=== PATIENT | female | born 1950 | race Caucasian/White ===

== ENCOUNTER → 2016-06-18 | Outpatient (CLI) | payer BC ==
[~2016-06-18] MED LIST: ADVIN25/60 INH; ADVIN25050 INH; ATEN50TA8 PO; ATOR-22 PO; ATV1 PO; B-COTAB18 PO; CETI10TA10 PO; CHOL100010 PO; CHOL1TAB76 PO; CLB/200 PO; CLON0.5T3 PO; CLR10 PO; CMBIN INH; CONJ.6255 PO; CYAN10004 PO; DICL-201 PO; EFF/375 PO; ESOM20CA PO; ESTR0.5T3 PO; HYDC25 PO; HYDR25TA4 PO; IPRA1AER2 INH; LORA10TA51 PO; MULT-506 PO; OXYB5TAB74 PO; POTA10CA28 PO; PRED20TA PO; PRLSR20 PO; RXC5 PO; TRAM-10 PO; ULT50X PO; VENL37.593 PO; VITA400C15 PO; VITACAP37 PO
[2016-06-18 16:19] LABS: ESTIMATED AVERAGE GLUCOSE 120 mg/dl; HA1C FLAG Normal (Normal)
[2016-06-18 16:24] LABS: BLOOD UREA NITROGEN 16 mg/dl (7-18); BUN/CREATININE RATIO 16.6 (10-20); CALCIUM 8.8 mg/dl (8.5-10.1); CARBON DIOXIDE 29 mmol/L (21-32); CHLORIDE 103 mmol/L (98-107); CREATININE 0.95 mg/dl (0.60-1.20); GLUCOSE 90 mg/dl (70-99); POTASSIUM 4.4 mmol/L (3.5-5.1); SODIUM 141 mmol/L (136-145)
[2016-06-18 16:28] LABS: CHOLESTEROL 223 mg/dl (0-200); CHOLESTEROL/HDL RATIO 4.6; HDL CHOLESTEROL 49 mg/dl; TRIGLYCERIDES 80 mg/dl (0-150); VERY LOW DENSITY LIPOPROT CALC 16 mg/dl
== END | disposition home or self-care (01) ==
LOC: C.LABSPEC 14:49
PROVIDERS: ATTEND Internal Medicine
DX: Z00.00 Encounter for general adult medical examination without abnormal findings (principal); R73.9 Hyperglycemia, unspecified; I10 Essential (primary) hypertension

== ENCOUNTER 2016-07-19 16:25 | Emergency (ER) | payer BC ==
[~2016-07-19] VITALS: Ht 160 cm; Wt 114.0 kg
[~2016-07-19 16:25] MED LIST changes: -ADVIN25/60 INH; -ATEN50TA8 PO; -ATOR-22 PO; -CHOL1TAB76 PO; -CLB/200 PO; -CLON0.5T3 PO; -DICL-201 PO; -ESOM20CA PO; -ESTR0.5T3 PO; -HYDR25TA4 PO; -HydrALAZINE HCL 20 MG/ML VIAL ONE; -IPRA1AER2 INH; -LABETALOL HCL IV 5 MG/ML 20ML IV ONE; -LIDOCAINE HCL 2% 2 ML VIAL (20MG/ML) ONE; -LORA10TA51 PO; -MULT-506 PO; -POTA10CA28 PO; -PRED20TA PO; -PROPOFOL IV EMULSION 10 MG/ML 20 ML VIAL IV ONE; -SODIUM CHLORIDE 0.9% 500ML 500 ML IV ONE; -TRAM-10 PO; -VENL37.593 PO; -VITACAP37 PO
[2016-07-19 16:28] VITALS: TEMP 37; Ht 160 cm; Wt 114.0 kg
[2016-07-19] MEDS ORDERED: VITACAP37 PO (16:44)
[2016-07-19] MEDS ORDERED: ASPIRIN 324 MG CHEW PO STA (16:46)
--- NOTE | 2016-07-19 16:48 | EMERGENCY ROOM VISIT NOTE ---
History Report prepared by Harris: Cornell Liao Under the Supervision of: Dr. Barron Jones M.D. First contact with patient: 16:39 Chief Complaint: CHEST PAIN Stated Complaint: Chest pain,dizzy s/p endoscopy Nursing Triage Summary: Colonoscopy today Dr. Castillo. Recovery at 1443 and experienced HTN, 166/88, 195/97, 215/100. Anesthesia ordered hydralizine and labetalol, BP down to 158/83. Pt. then experienced CP, dizziness, and chest heaviness. Pt. denies radiation. EKG done at 1602. Pt. arrives to ED on a litter from the GI unit, [place] x 3 with no complaints of CP, only SOB. Pt. is 98% on 2 L O2. History of Present Illness The patient is a 65 year old female who presents to the Emergency Room with complaints of resolved chest heaviness that occurred earlier today. The patient was also feeling short of breath which has improved. The patient had a Colonoscopy earlier today. The patient was noted to be increasingly hypertensive at that time. She had her Atenolol this morning but did not take hydrochlorothiazide. The patient denies any palpitations. She does have a history of angina and a family history of UT. She is not diabetic and was never a smoker. She denies any increased leg swelling or recent travel. She does not wear oxygen normally. Source of History: patient Onset: earlier today Position: chest Quality: other (heaviness) Timing: resolved Associated Symptoms: + SOB Review of Systems See HPI for pertinent positives & negatives. A total of 10 systems reviewed and were otherwise negative. Past Medical & Surgical Medical Problems: (1) CAD (coronary artery disease) (2) Lumbar stenosis with neurogenic claudication Family History Acute myocardial infarction Social History Smoking Status: Never Smoker Housing Status: lives with family Current/Historical Medications Scheduled Atenolol (Tenormin), 50 MG PO QAM Atorvastatin (Lipitor), 20 MG PO HS Celecoxib (CeleBREX), 200 MG PO QAM Cetirizine Hcl (Zyrtec), 10 MG PO QAM Cholecalciferol (D 1999), 1 TAB PO QAM Clonazepam (Klonopin), 0.5 MG PO BID Cyanocobalamin (Vitamin B-12 1000 Mcg), 2,500 MCG PO QAM Esomeprazole Magnesium (Nexium), 20 MG PO QAM Estradiol (Estradiol), 1 TAB PO QAM Fluticasone Prop/Salmeterol (Advair Diskus 250/50 60 Dose), 1 PUFF INH BID Hydrochlorothiazide (Hctz), 25 MG PO DAILY Multivitamin (Multivitamin), 1 TAB PO QAM Potassium Chloride (Micro-K Ext Rel), 10 MEQ PO QAM Venlafaxine Hcl (Venlafaxine Extended Rel), 37.5 MG PO QAM Vitamin E (E-400), 400 UNITS PO DAILY Allergies Coded Allergies: Codeine (Verified Allergy, Mild, itching, 07/06/16) Lactose Intolerance (GI) (Verified Allergy, Unknown, GI UPSET, 07/06/16) Physical Exam Vital Signs Date Time Temp Pulse Resp B/P Pulse Ox O2 Delivery O2 Flow Rate FiO2 07/19/16 19:19 82 17 171/88 96 07/19/16 17:35 75 16 171/88 95 Room Air 07/19/16 16:38 78 07/19/16 16:28 37.0 80 16 123/88 98 Nasal Cannula 2.0 Physical Exam GENERAL: Patient is smiling, happy-appearing and in no acute distress. HEENT: No acute trauma, normocephalic atraumatic, mucous membranes moist, no nasal congestion, no scleral icterus. NECK: No stridor, no adenopathy, no meningismus, trachea is midline. LUNGS: No dyspnea. Clear to auscultation and equal bilaterally. No wheeze, no rhonchi. HEART: Regular rate and rhythm. No murmurs, rubs, gallops appreciated. ABDOMEN: Soft, nontender, bowel sounds positive, no masses appreciated, no peritonitis. BACK: No midline tenderness, no CVA tenderness EXTREMITIES: Normal motion all extremities, no cyanosis, no edema. NEUROLOGIC: Alert and oriented, no acute motor or sensory deficits, no focal weakness, cranial nerves grossly intact. SKIN: No rash, no jaundice, no diaphoresis. Medical Decision & Procedures ER Provider Diagnostic Interpretation: Radiology results and stated below per my review and radiologist interpretation: SINGLE VIEW CHEST CLINICAL HISTORY: Atypical chest pain. FINDINGS: 2 AP, portable, upright chest radiographs are compared to study dated 10/05/2015. The examination is degraded by portable technique, large body habitus, and patient rotation. The heart appears mildly enlarged and there is atherosclerotic calcification of the thoracic aorta. There is mild congestion of the pulmonary vasculature. No airspace consolidation or large pleural effusion is identified. No pneumothorax is seen. The skeletal structures are osteopenic. The bony thorax is grossly intact. IMPRESSION: 1. Mild cardiac enlargement with congestion of the central pulmonary vasculature. Cortical clinically for evidence of mild congestive failure. 2. No airspace consolidation or large pleural effusion is identified Electronically signed by: Nato Martinez M.D. 07/19/2016 5:14 PM Dictated Date/Time: 07/19/2016 5:13 PM Laboratory Results 07/19/16 17:10 Red Blood Count 4.38, Mean Corpuscular Volume 89.5, Mean Corpuscular Hemoglobin 31.5, Mean Corpuscular Hemoglobin Concent 35.2, Mean Platelet Volume 9.9, Neutrophils (%) (Auto) 66.5, Lymphocytes (%) (Auto) 26.9, Monocytes (%) (Auto) 5.5, Eosinophils (%) (Auto) 0.7, Basophils (%) (Auto) 0.3, Neutrophils # (Auto) 5.91, Lymphocytes # (Auto) 2.39, Monocytes # (Auto) 0.49, Eosinophils # (Auto) 0.06, Basophils # (Auto) 0.03 07/19/16 17:10 Test 07/19/16 17:10 07/19/16 18:42 White Blood Count 8.89 K/uL (4.8-10.8) Red Blood Count 4.38 M/uL (4.2-5.4) Hemoglobin 13.8 g/dL (12.0-16.0) Hematocrit 39.2 % (37-47) Mean Corpuscular Volume 89.5 fL (80-100) Mean Corpuscular Hemoglobin 31.5 pg (25-34) Mean Corpuscular Hemoglobin Concent 35.2 g/dl (32-36) Platelet Count 280 K/uL (130-400) Mean Platelet Volume 9.9 fL (7.4-10.4) Neutrophils (%) (Auto) 66.5 % Lymphocytes (%) (Auto) 26.9 % Monocytes (%) (Auto) 5.5 % Eosinophils (%) (Auto) 0.7 % Basophils (%) (Auto) 0.3 % Neutrophils # (Auto) 5.91 K/uL (1.4-6.5) Lymphocytes # (Auto) 2.39 K/uL (1.2-3.4) Monocytes # (Auto) 0.49 K/uL (0.11-0.59) Eosinophils # (Auto) 0.06 K/uL (0-0.5) Basophils # (Auto) 0.03 K/uL (0-0.2) RDW Standard Deviation 46.4 fL (36.4-46.3) RDW Coefficient of Variation 14.2 % (11.5-14.5) Immature Granulocyte % (Auto) 0.1 % Immature Granulocyte # (Auto) 0.01 K/uL (0.00-0.02) Anion Gap 9.0 mmol/L (3-11) Est Creatinine Clear Calc Drug Dose 76.6 ml/min Estimated GFR () 78.8 Estimated GFR (Non- 68.0 BUN/Creatinine Ratio 10.9 (10-20) Calcium Level 8.5 mg/dl (8.5-10.1) Total Creatine Kinase 123 U/L (26-192) Creatine Kinase MB 2.3 ng/ml (0.5-3.6) Creatine Kinase MB Ratio 1.9 (0-3.0) Troponin I < 0.015 ng/ml (0-0.045) Bedside Troponin I 0.000 ng/ml (0-0.045) Laboratory results as reviewed by me. Medications Administered Medications (Trade) Dose Ordered Sig/Seema Route Start Time Stop Time Status Last Admin Dose Admin Famotidine (Pepcid Tab) 20 mg NOW ONCE PO 07/19/16 17:00 07/19/16 17:01 DC 07/19/16 17:31 20 MG Aspirin (Aspirin Chew) 324 mg NOW STAT PO 07/19/16 16:46 07/19/16 16:47 DC 07/19/16 17:32 324 MG ECG Indication: chest pain Rate (beats per minute): 75 Rhythm: sinus rhythm Findings: 1st degree AV block, nonspecific-ST abn, other (flattening of lateral T-waves) Change: Morphology is overall similar to previous EKGs, including EKG dated 05 October 2015. ED Course 1644: The patient was evaluated in room A4a. A complete history and physical exam was performed. 1646: Aspirin 324 mg PO. 1700: Pepcid 20 mg PO. 180: The patient feels great and is eating dinner. She is okay with waiting for a repeat troponin. She would like to go home. The patient is mildly hypertensive but admits that she did not take all of her meds this morning. 1907: The patient feels great and looks forward to going home. 1909: Discussed the case with Dr. Nicholson, Family Medicine. He agrees with the plan and will follow up. Medical Decision Differential: Cardiac Ischemia (STEMI, NSTEMI, Unstable Angina, etc), Aortic Dissection, Arrhythmia, Pulmonary Embolism, Pneumonia, Pneumothorax, MSK, Infectious, Pericarditis/Myocarditis, Esophageal Rupture, Gastrointestinal, amongst other pathologies entertained. 65 yr old female arrives from post -op where just finished benign colonoscopy. Admits didn't take all BP meds this morning. HTN post-op thus given anti- hypertensives IV resulting in significant drop BP and concurrent Chest discomfort. Resolved shortly thereafter and patient feeling well. EKG here without acute STEMI. Vitals mild HTN though will not yonathan given what just happened. Monitored for several hours no issues. Repeat Trop negative. Patient is not interested in cardiac obs rule out and understands that cardiac event not completely ruled out. Aware she can return at any time and that if symptoms call 911. Stable and feeling well. She and are in agreement on going home. She makes clear she will follow up with PCP. I discussed this with PCP to make him aware of what has happened. Without other symptoms and being stable throughout several hours I do not feel this represents PE, dissection, esophageal rupture. Consults Time Called: 1904 Consulting Physician: Dr. Nicholson, Family Medicine. Returned Call: 1909 1909: Discussed the case with Dr. Nicholson, Family Medicine. He agrees with the plan and will follow up. Impression Primary Impression: Substernal precordial chest pain Additional Impression: Hypertension Scribe Attestation The scribe's documentation has been prepared under my direction and personally reviewed by me in its entirety. I confirm that the note above accurately reflects all work, treatment, procedures, and medical decision making performed by me. Departure Information Dispostion Home / Self-Care Referrals Christian Vela M.D. (PCP) Forms HOME CARE DOCUMENTATION FORM, IMPORTANT VISIT INFORMATION Patient Instructions Chest Pain - [facility], [facility] Additional Instructions Follow up with your PCP in next few days for follow up and to discuss stress testing. Problem Qualifiers Additional Impression: Hypertension Hypertension type: essential hypertension Qualified Codes: I10 - Essential ( primary) hypertension
[2016-07-19] MEDS ORDERED: FAMOTIDINE 20 MG TAB PO ONE (17:00)
--- NOTE | 2016-07-19 17:16 | DIAGNOSTIC IMAGING REPORT ---
SINGLE VIEW CHEST CLINICAL HISTORY: Atypical chest pain. FINDINGS: 2 AP, portable, upright chest radiographs are compared to study dated 10/05/2015. The examination is degraded by portable technique, large body habitus, and patient rotation. The heart appears mildly enlarged and there is atherosclerotic calcification of the thoracic aorta. There is mild congestion of the pulmonary vasculature. No airspace consolidation or large pleural effusion is identified. No pneumothorax is seen. The skeletal structures are osteopenic. The bony thorax is grossly intact. IMPRESSION: 1. Mild cardiac enlargement with congestion of the central pulmonary vasculature. Cortical clinically for evidence of mild congestive failure. 2. No airspace consolidation or large pleural effusion is identified Electronically signed by: Nato Martinez M.D. 07/19/2016 5:14 PM Dictated Date/Time: 07/19/2016 5:13 PM
[2016-07-19 17:23] LABS: BASO % 0.3 %; BASO ABS # 0.03 K/uL (0-0.2); COMPLETE YES; EOS % 0.7 %; HEMATOCRIT 39.2 % (37-47); IG% 0.1 %; LYMPH % 26.9 %; LYMPH ABS # 2.39 K/uL (1.2-3.4); MEAN CELL VOLUME 89.5 fL (80-100); MEAN CORPUSCULAR HEMOGLOBIN 31.5 pg (25-34); MEAN CORPUSCULAR HGB CONC 35.2 g/dl (32-36); MEAN PLATELET VOLUME 9.9 fL (7.4-10.4); MONO % 5.5 %; NEUT % 66.5 %; PLATELET COUNT 280 K/uL (130-400); RED BLOOD COUNT 4.38 M/uL (4.2-5.4); WHITE BLOOD COUNT 8.89 K/uL (4.8-10.8)
[2016-07-19 17:40] LABS: BLOOD UREA NITROGEN 10 mg/dl (7-18); BUN/CREATININE RATIO 10.9 (10-20); CALCIUM 8.5 mg/dl (8.5-10.1); CARBON DIOXIDE 27 mmol/L (21-32); CHLORIDE 107 mmol/L (98-107); CREATININE 0.89 mg/dl (0.60-1.20); GLUCOSE 100 mg/dl (70-99); POTASSIUM 3.4 mmol/L (3.5-5.1); SODIUM 143 mmol/L (136-145)
[2016-07-19 17:45] LABS: CKMB/CK RATIO 1.9 (0-3.0)
[2016-07-19 19:19] VITALS: BP 171/88; PULSE 82; O2SAT 96
[2017-01-24] MEDS ORDERED: CHOL1TAB76 PO (09:05)
[2017-01-24] MEDS ORDERED: ESOM20CA PO (09:05)
[2017-01-24] MEDS ORDERED: ADVIN25/60 INH (09:05)
[2017-01-24] MEDS ORDERED: CLB/200 PO (09:05)
[2017-01-24] MEDS ORDERED: ESTR0.5T3 PO (09:05)
[2017-01-24] MEDS ORDERED: VENL37.593 PO (09:05)
[2017-01-24] MEDS ORDERED: ATOR-22 PO (09:09)
[2017-01-24] MEDS ORDERED: MULT-506 PO (09:40)
[2017-01-24] MEDS ORDERED: POTA10CA28 PO (11:40)
== END 2016-07-19 19:21 | disposition home or self-care (01) ==
LOC: EDBD 16:25 → C.EDA 16:27
DX: R07.2 Precordial pain (principal); I10 Essential (primary) hypertension; I44.30 Unspecified atrioventricular block; I25.10 Atherosclerotic heart disease of native coronary artery without angina pectoris; M48.06 Spinal stenosis, lumbar region; Z79.899 Other long term (current) drug therapy; Z88.5 Allergy status to narcotic agent; Z91.011 Allergy to milk products; Z82.49 Family history of ischemic heart disease and other diseases of the circulatory system

== ENCOUNTER → 2016-07-19 | Day surgery (SDC) | payer BC ==
[2016-07-06 09:06] VITALS: Ht 161.3 cm; Wt 109.1 kg
[~2016-07-19] VITALS: Ht 161.3 cm; Wt 109.1 kg
[~2016-07-19] MED LIST changes: -ADVIN25050 INH; -ATV1 PO; -B-COTAB18 PO; -CHOL100010 PO; -CLR10 PO; -CONJ.6255 PO; -EFF/375 PO; +HydrALAZINE HCL 20 MG/ML VIAL ONE; +LABETALOL HCL IV 5 MG/ML 20ML IV ONE; +LIDOCAINE HCL 2% 2 ML VIAL (20MG/ML) ONE; -OXYB5TAB74 PO; -PRLSR20 PO; +PROPOFOL IV EMULSION 10 MG/ML 20 ML VIAL IV ONE; -RXC5 PO; +SODIUM CHLORIDE 0.9% 500ML 500 ML IV ONE; -ULT50X PO
--- NOTE | 2016-07-19 14:15 | Endo History and Physical ---
History & Physical Date of Service: Jul 19, 2016. Chief Complaint: history of polyps Referring Physician: Dr Janna Katz History of Present Illness hx polyps Past Surgical History Hx Cardiac Surgery: No Hx Internal Defibrillator: No Hx Pacemaker: No Hx Abdominal Surgery: Yes (JESSY) Hx of Implantable Prosthesis: No Hx Post-Op Nausea and Vomiting: No Hx Cancer Surgery: Yes (MAREK BSO) Hx Thoracic Surgery: No Hx Orthopedic: Yes (LOWER BACK SURGERY X2, LT/RT TKA) Hx Urinary Tract Surgery: No Family History IBD Social History Smoking Status: Never Smoker Hx Substance Use: No Hx Alcohol Use: No Allergies Coded Allergies: Codeine (Verified Allergy, Mild, itching, 07/06/16) Lactose Intolerance (GI) (Verified Allergy, Unknown, GI UPSET, 07/06/16) Current Medications Reported Home Medications Medications Dose Route/Sig Max Daily Dose Days Date Category Dose Instructions Lipitor (Atorvastatin Calcium) 20 Mg Tab 20 Mg PO HS 07/06/16 Reported NEW RX - HAS NOT STARTED YET Advair Diskus 250/50 60 Dose (Fluticasone Prop/Salmeterol) 1 Ea Aerp 1 Puff INH BID 07/06/16 Reported Nexium (Esomeprazole Magnesium) 20 Mg Capcr 20 Mg PO QAM 07/06/16 Reported Zyrtec (Cetirizine Hcl) 10 Mg Tab 10 Mg PO QAM 07/06/16 Reported CeleBREX (Celecoxib) 200 Mg Cap 200 Mg PO QAM 07/06/16 Reported Estradiol 0.5 Mg Tab 1 Tab PO QAM 07/06/16 Reported Venlafaxine Extended Rel (Venlafaxine Hcl) 37.5 Mg Cap 37.5 Mg PO QAM 07/06/16 Reported Vitamin B-12 1000 Mcg (Cyanocobalamin) 1,000 Mcg Tab 2,500 Mcg PO QAM 07/06/16 Reported D 2000 (Cholecalciferol) 2,000 Unit Tab 1 Tab PO QAM 07/06/16 Reported Vitamin E (kg-Zmare-Vqdihlelre Acetate) 400 Inter.unit Cap 400 Inter.unit PO BID 10/05/15 Reported Multivitamin (Multivitamins) Tab 1 Tab PO QAM 10/05/15 Reported Combivent * (Ipratropium [place]) Inh 2 Puffs INH QID PRN 08/31/10 Reported Klonopin (Clonazepam) 0.5 Mg Tab 0.5 Mg PO BID 08/31/10 Reported Micro-K Ext Rel (Potassium Chloride) 10 Meq Capcr 10 Meq PO QAM 02/18/09 Reported Hctz * (Hydrochlorothiazide) 25 Mg Tab 25 Mg PO QAM 02/21/09 Reported Tenormin (Atenolol) 50 Mg Tab 50 Mg PO QAM 02/21/09 Reported Vital Signs Weight (Kilograms): 109.09 Height (Feet): 5 Height (Inches): 3.5 Date Time Temp Pulse Resp B/P Pulse Ox O2 Delivery O2 Flow Rate FiO2 07/19/16 13:40 36.4 65 20 193/88 95 Room Air Physical Exam AAO x3 Nl s1s2 Lungs CTA Abd soft NT ND + BS - CCE
--- NOTE | 2016-07-19 14:43 | Discharge Instructions ---
Endoscopy Patient Instructions Date / Procedure(s) Performed Jul 19, 2016. Colonoscopy Allergy Information Coded Allergies: Codeine (Verified Allergy, Mild, itching, 07/06/16) Lactose Intolerance (GI) (Verified Allergy, Unknown, GI UPSET, 07/06/16) Discharge Date / Findings Jul 19, 2016. diverticulosis Medication Instructions Stopped Medication(s): vitamins stopped for 1 week Restart Stopped Medication(s): Reported Home Medications Medications Dose Route/Sig Max Daily Dose Days Date Category Dose Instructions Lipitor (Atorvastatin Calcium) 20 Mg Tab 20 Mg PO HS 07/06/16 Reported NEW RX - HAS NOT STARTED YET Advair Diskus 250/50 60 Dose (Fluticasone Prop/Salmeterol) 1 Ea Aerp 1 Puff INH BID 07/06/16 Reported Nexium (Esomeprazole Magnesium) 20 Mg Capcr 20 Mg PO QAM 07/06/16 Reported Zyrtec (Cetirizine Hcl) 10 Mg Tab 10 Mg PO QAM 07/06/16 Reported CeleBREX (Celecoxib) 200 Mg Cap 200 Mg PO QAM 07/06/16 Reported Estradiol 0.5 Mg Tab 1 Tab PO QAM 07/06/16 Reported Venlafaxine Extended Rel (Venlafaxine Hcl) 37.5 Mg Cap 37.5 Mg PO QAM 07/06/16 Reported Vitamin B-12 1000 Mcg (Cyanocobalamin) 1,000 Mcg Tab 2,500 Mcg PO QAM 07/06/16 Reported D 2000 (Cholecalciferol) 2,000 Unit Tab 1 Tab PO QAM 07/06/16 Reported Vitamin E (py-Vjbwu-Qxgxnpukux Acetate) 400 Inter.unit Cap 400 Inter.unit PO BID 10/05/15 Reported Multivitamin (Multivitamins) Tab 1 Tab PO QAM 10/05/15 Reported Combivent * (Ipratropium [place]) Inh 2 Puffs INH QID PRN 08/31/10 Reported Klonopin (Clonazepam) 0.5 Mg Tab 0.5 Mg PO BID 08/31/10 Reported Micro-K Ext Rel (Potassium Chloride) 10 Meq Capcr 10 Meq PO QAM 02/18/09 Reported Hctz * (Hydrochlorothiazide) 25 Mg Tab 25 Mg PO QAM 02/21/09 Reported Tenormin (Atenolol) 50 Mg Tab 50 Mg PO QAM 02/21/09 Reported Reported Home Medications Medications Dose Route/Sig Max Daily Dose Days Date Category Dose Instructions Lipitor (Atorvastatin Calcium) 20 Mg Tab 20 Mg PO HS 07/06/16 Reported NEW RX - HAS NOT STARTED YET Advair Diskus 250/50 60 Dose (Fluticasone Prop/Salmeterol) 1 Ea Aerp 1 Puff INH BID 07/06/16 Reported Nexium (Esomeprazole Magnesium) 20 Mg Capcr 20 Mg PO QAM 07/06/16 Reported Zyrtec (Cetirizine Hcl) 10 Mg Tab 10 Mg PO QAM 07/06/16 Reported CeleBREX (Celecoxib) 200 Mg Cap 200 Mg PO QAM 07/06/16 Reported Estradiol 0.5 Mg Tab 1 Tab PO QAM 07/06/16 Reported Venlafaxine Extended Rel (Venlafaxine Hcl) 37.5 Mg Cap 37.5 Mg PO QAM 07/06/16 Reported Vitamin B-12 1000 Mcg (Cyanocobalamin) 1,000 Mcg Tab 2,500 Mcg PO QAM 07/06/16 Reported D 2000 (Cholecalciferol) 2,000 Unit Tab 1 Tab PO QAM 07/06/16 Reported Vitamin E (nx-Eytob-Cbtfgfgwvi Acetate) 400 Inter.unit Cap 400 Inter.unit PO BID 10/05/15 Reported Multivitamin (Multivitamins) Tab 1 Tab PO QAM 10/05/15 Reported Combivent * (Ipratropium [place]) Inh 2 Puffs INH QID PRN 08/31/10 Reported Klonopin (Clonazepam) 0.5 Mg Tab 0.5 Mg PO BID 08/31/10 Reported Micro-K Ext Rel (Potassium Chloride) 10 Meq Capcr 10 Meq PO QAM 02/18/09 Reported Hctz * (Hydrochlorothiazide) 25 Mg Tab 25 Mg PO QAM 02/21/09 Reported Tenormin (Atenolol) 50 Mg Tab 50 Mg PO QAM 02/21/09 Reported Provider Instructions Activity Restrictions - No exercising or heavy lifting for 24 hours. - Do not drink alcohol the day of the procedure. - Do not drive a car or operate machinery until the day after the procedure. - Do not make any important decisions or sign important papers in 24 hours after the procedure. Following Day: - Return to full activity which may include returning to work/school. Diet Start your diet with liquids and light foods (camilla soup, juice, toast). Then eat your usual diet if not nauseated. Treatment For Common After Affects For mild abdominal pain, bloating, or excessive gas: - Rest - Eat lightly - Lie on right side Follow-Up Information Follow-up with Dr Janna Katz as scheduled Anesthesia Information What You Should Know You have had a procedure that required some medicine to reduce anxiety and discomfort. This treatment is called moderate sedation. After receiving the treatment, you may be sleepy, but you will be able to breathe on your own. The effects of the treatment may last for several hours. Follow these instructions along with Activity/Diet recommendations noted above: * Do NOT do anything where dizziness or clumsiness would be dangerous. * Rest quietly at home today, then you can be up and about tomorrow. * Have a responsible person stay with you the rest of today. * You may have had an I.V. today. If so, you may take the dressing off later today. Recommendations Call your doctor if: * Trouble breathing * Continuous vomiting for more than 24 hours * Temperature above 101 degrees * Severe abdominal pain or bloating * Pain not relieved by pain medicine ordered * There is increased drainage or redness from any incision * A large amount of rectal bleeding greater than 2-3 tablespoons. (If you had a polyp/s removed or have hemorrhoids, a small amount of blood - from the rectum is to be expected.) * You have any unanswered questions or concerns. IN THE EVENT OF A SERIOUS EMERGENCY, GO TO THE NEAREST EMERGENCY ROOM Your discharge instructions were prepared by provider Jamaal Castillo. Patient Instructions Signature Page Marbella Altamirano Patient (or Guardian) Signature/Date: I have read and understand the instructions given to me by my caregivers. Caregiver/RN/Doctor Signature/Date: The above-named patient and/or guardian has received patient instructions on this date. + Original Patient Signature Page (only) stays with chart. Please make copy for patient.
--- NOTE | 2016-07-19 15:22 | GI REPORT ---
Procedure Date: 07/19/2016 1:58 PM Procedure: Colonoscopy Indications: High risk colon cancer surveillance: Personal history of colonic polyps Medicines: Propofol per Anesthesia Complications: No immediate complications. Estimated Blood Loss: Estimated blood loss: none. Estimated blood loss: none. Procedure: Pre-Anesthesia Assessment: - Prior to the procedure, a History and Physical was performed, and patient medications and allergies were reviewed. The patient's tolerance of previous anesthesia was also reviewed. The risks and benefits of the procedure and the sedation options and risks were discussed with the patient. All questions were answered, and informed consent was obtained. Prior Anticoagulants: The patient has taken no previous anticoagulant or antiplatelet agents. ASA Grade Assessment: II - A patient with mild systemic disease. After reviewing the risks and benefits, the patient was deemed in satisfactory condition to undergo the procedure. After I obtained informed consent, the scope was passed under direct vision. Throughout the procedure, the patient's blood pressure, pulse, and oxygen saturations were monitored continuously. The Scope was introduced through the anus and advanced to the terminal ileum, with identification of the appendiceal orifice and IC valve. The colonoscopy was performed without difficulty. The patient tolerated the procedure well. The quality of the bowel preparation was good. Findings: The perianal and digital rectal examinations were normal. Pertinent negatives include normal sphincter tone, no palpable rectal lesions and no anal lesion or abnormality was detected. A few small-mouthed diverticula were found in the sigmoid colon. The exam was otherwise without abnormality. The terminal ileum appeared normal. The retroflexed view of the distal rectum and anal verge was normal and showed no anal or rectal abnormalities. Impression: - Diverticulosis in the sigmoid colon. - The examination was otherwise normal. - The examined portion of the ileum was normal. - The distal rectum and anal verge are normal on retroflexion view. - No specimens collected. Recommendation: - Discharge patient to home (ambulatory). - Resume regular diet. - Continue present medications. - Await pathology results. - Repeat colonoscopy in 5 years for surveillance. - Return to referring physician as previously scheduled. MD Jamaal Vincent MD 07/19/2016 3:22:14 PM This report has been signed electronically. Note Initiated On: 07/19/2016 1:58 PM I attest to the content of the Intraoperative Record and orders documented therein, exceptions below
[2016-07-19 15:55] VITALS: BP 158/83; PULSE 73; O2SAT 98
--- NOTE | 2016-07-19 16:35 | Anesthesiology Progress Note ---
Anesthesia Post Op Note Date & Time Jul 19, 2016 at 15:24 Vital Signs Pain Intensity: 0 Vital Signs Past 12 Hours Date Time Temp Pulse Resp B/P Pulse Ox O2 Delivery O2 Flow Rate FiO2 07/19/16 15:13 65 20 186/106 96 Room Air 07/19/16 14:58 68 20 165/82 97 Room Air 07/19/16 14:43 69 20 166/88 96 Room Air 07/19/16 13:40 36.4 65 20 193/88 95 Room Air Notes Mental Status: alert / awake / arousable, participated in evaluation Pt Amnestic to Procedure: Yes Nausea / Vomiting: adequately controlled Pain: adequately controlled Airway Patency, RR, SpO2: stable & adequate BP & HR: stable & adequate Hydration State: stable & adequate Anesthetic Complications: no major complications apparent The patient is a 65 y/o female with a h/o HTN, Asthma, COPD, GERD, uterine CA , anxiety/depression and obesity who is s/p colonoscopy with Dr. Henriquez. The patient's preop BP was elevated to 193/88 HR 65. She took her Atenolol today but not her HCTZ and stated she was anxious for the procedure. She stated she saw her PCP several weeks ago and that she believes her BP at the time was 130s/ 70s. During the procedure, her BP improved with propofol to the 130s/60s, however it began to rise again up to 195/97 HR 60s in recovery. The patient was given a total of Hydralazine 10mg IV and Labetalol 5mg IV. As her BP was starting to improve, she started to complain of chest heaviness associated with lightheaded and shortness of breath. She denied nausea. A 12 lead EKG was done and showed NSR with first degree AV block, HR 75 and nonspecific T wave changes. Comparing it to her last EKG from 10/12 it appears that there is some T wave flattening in the later leads. I informed the patient that I would like her to go to the ED for further evaluation. She was agreeable. I also informed Dr. Castillo that the patient was going to the ED. I gave a full report to Dr. Jones in the ED. The patient was transported to the ED by the endoscopy nurses of full monitors. BP prior to transfer was 158/83 HR 73. Prior to being transferred the patient stated that her chest pressure and shortness of breath had mostly resolved.
== END | disposition home or self-care (01) ==
LOC: C.GI 12:45
PROVIDERS: ATTEND Internal Medicine Gastroenterology
DX: Z12.11 Encounter for screening for malignant neoplasm of colon (principal); Z86.010 Personal history of colon polyps; K57.30 Diverticulosis of large intestine without perforation or abscess without bleeding; Z98.890 Other specified postprocedural states; Z83.79 Family history of other diseases of the digestive system; Z88.5 Allergy status to narcotic agent; R07.2 Precordial pain; I10 Essential (primary) hypertension; I44.30 Unspecified atrioventricular block; I25.10 Atherosclerotic heart disease of native coronary artery without angina pectoris; M48.06 Spinal stenosis, lumbar region; Z79.899 Other long term (current) drug therapy; Z91.011 Allergy to milk products; Z82.49 Family history of ischemic heart disease and other diseases of the circulatory system

== ENCOUNTER → 2016-08-21 | Outpatient (CLI) | payer BC ==
[~2016-08-21] MED LIST changes: +ADVIN25/60 INH; +ATEN50TA8 PO; +ATOR-22 PO; +CHOL1TAB76 PO; +CLB/200 PO; +CLON0.5T3 PO; -CMBIN INH; +DICL-201 PO; +ESOM20CA PO; +ESTR0.5T3 PO; -HYDC25 PO; +HYDR25TA4 PO; +IPRA1AER2 INH; +LORA10TA51 PO; +MULT-506 PO; +POTA10CA28 PO; +PRED20TA PO; +REGADENOSON 0.4 MG/5 ML SYR ONE; +TRAM-10 PO; +VENL37.593 PO; -VITA400C15 PO; +VITACAP37 PO
--- NOTE | 2016-08-21 16:17 | MYOCARDIAL PERFUSION SCAN ---
DATE OF STUDY: 08/21/2016. PRIMARY CARE PHYSICIAN AND REQUESTING PHYSICIAN: Dr. Nicholson. STUDY TITLE: ONE-DAY NUCLEAR MEDICINE TECHNETIUM-99M MYOCARDIAL PERFUSION SCAN. INDICATIONS: Chest pain, abnormal EKG. Baseline EKG shows sinus rhythm with first degree AV block, RSR prime pattern with prolonged QTC. Lexiscan stress EKG baseline heart rate 65, crow to 82, 52% of maximum predicted heart rate. No Lexiscan-induced ST changes or arrhythmias. No symptoms with pharmacologic stress. TECHNIQUE: For the stress portion of the study 30.3 mCi of technetium-99m Cardiolite IV was injected at 1335 p.m. on 08/21/2016. Thirty minutes following the injection, imaging of the heart was performed in multiple projections. For the rest portion of the study 11.3 mCi of technetium-99m Cardiolite was injected IV at 11:35. One hour following the injection, imaging of the heart was performed in the same projections. FINDINGS: Rotating raw images were reviewed in detail. There was an anterior lateral breast attenuation shadow noted. There was minimal gut uptake impacting the inferior imaging border of the heart. There was no significant extra cardiac pathologic uptake. The short axis, vertical long axis, horizontal long axis images were reviewed in detail. There was a small mild to moderate partially reversible perfusion defect involving the mid anterior apical anterior and lateral wall and true apex. Overall summed difference score of 2. This defect was thought most likely to correspond with breast attenuation. Normal LV size with an end-diastolic volume of 60 mL, EF was 86% with no regional wall motion abnormalities. IMPRESSION: 1. Negative Lexiscan myocardial perfusion scan for high risk of ischemia. 2. Small, mild partially reversible perfusion defect involving the mid to apical anterior wall which I suspect was artifactual in the setting of normal wall motion. Less likely could represent distal LAD infarct with periinfarct ischemia. 3. Normal left ventricular size and function with an ejection fraction of 86%, no regional wall motion abnormalities noted. 4. Nondiagnostic Lexiscan EKG due to inability to reach target heart rate. MTDD
== END | disposition home or self-care (01) ==
LOC: C.NUCL 10:57
PROVIDERS: ATTEND Internal Medicine
DX: R94.31 Abnormal electrocardiogram [ECG] [EKG] (principal); R07.9 Chest pain, unspecified

== ENCOUNTER → 2016-09-19 | Outpatient (CLI) | payer BC ==
[~2016-09-19] MED LIST changes: -REGADENOSON 0.4 MG/5 ML SYR ONE
== END | disposition home or self-care (01) ==
LOC: C.LABSPEC 14:00
PROVIDERS: ATTEND Internal Medicine
DX: N39.0 Urinary tract infection, site not specified (principal)

== ENCOUNTER → 2017-01-03 | Outpatient (CLI) | payer BC ==
[2017-01-03 15:29] LABS: ALT/SGPT 24 U/L (12-78); AST/SGOT 17 U/L (15-37); BLOOD UREA NITROGEN 14 mg/dl (7-18); BUN/CREATININE RATIO 14.8 (10-20); CALCIUM 9.2 mg/dl (8.5-10.1); CARBON DIOXIDE 30 mmol/L (21-32); CHLORIDE 102 mmol/L (98-107); CHOLESTEROL 164 mg/dl (0-200); CREATININE 0.91 mg/dl (0.60-1.20); GLUCOSE 92 mg/dl (70-99); POTASSIUM 3.9 mmol/L (3.5-5.1); SODIUM 140 mmol/L (136-145); TRIGLYCERIDES 78 mg/dl (0-150); VERY LOW DENSITY LIPOPROT CALC 16 mg/dl
[2017-01-03 15:32] LABS: ALB/GLOB RATIO 0.9 (0.9-2); ALKALINE PHOSPHATASE 105 U/L (45-117); CHOLESTEROL/HDL RATIO 3.2; HDL CHOLESTEROL 51 mg/dl
[2017-01-03 16:44] LABS: ESTIMATED AVERAGE GLUCOSE 120 mg/dl; HA1C FLAG Normal (Normal)
== END | disposition home or self-care (01) ==
LOC: C.LABSPEC 14:54
PROVIDERS: ATTEND Internal Medicine
DX: R73.9 Hyperglycemia, unspecified (principal); I10 Essential (primary) hypertension; E78.5 Hyperlipidemia, unspecified

== ENCOUNTER 2017-01-24 15:02 | Emergency (ER) | payer BC ==
[~2017-01-24] VITALS: Ht 160 cm; Wt 117.0 kg
[~2017-01-24 15:02] MED LIST changes: -ATEN50TA8 PO; -CLON0.5T3 PO; -DICL-201 PO; -HYDR25TA4 PO; -IPRA1AER2 INH; -LORA10TA51 PO; -PRED20TA PO; -TRAM-10 PO
[2017-01-24 15:12] VITALS: TEMP 36.6; Ht 160 cm; Wt 117.0 kg
--- NOTE | 2017-01-24 15:54 | EMERGENCY ROOM VISIT NOTE ---
History Report prepared by Harris: Diana William Under the Supervision of: Dr. Gal Yost M.D. First contact with patient: 15:31 Chief Complaint: BACK PAIN Stated Complaint: VERY BAD PAIN IN LOWER BACK History of Present Illness The patient is a 66 year old female who presents to the Emergency Room with complaints of worsening lower back pain that began 1 month ago. She states that the pain has been causing her nausea and abdominal pain. She also reports having a cough for several months. She states that the pain is severe and that she had a shot done by her orthopedic doctor for it last month, but it did not alleviate her pain. The patient reports a history of 2 back operations that were done three years ago and in October of last year. She reports that she can feel the pain when she lifts her legs. The patient denies having urinary symptoms. incontinence, chills, and fevers. Source of History: patient Onset: 1 month ago Position: back (lower) Symptom Intensity: severe Timing: worsening Associated Symptoms: + cough, + nausea, + abdominal pain, No fevers, No chills, No urinary symptoms Review of Systems See HPI for pertinent positives and negatives. A total of ten systems were reviewed and were otherwise negative. Past Medical & Surgical Medical Problems: (1) CAD (coronary artery disease) (2) Lumbar stenosis with neurogenic claudication Family History Acute myocardial infarction Social History Smoking Status: Never Smoker Housing Status: lives with family Current/Historical Medications Scheduled Atenolol (Tenormin), 50 MG PO QAM Atorvastatin (Lipitor), 20 MG PO HS Celecoxib (CeleBREX), 200 MG PO QAM Cholecalciferol (D 2000), 1 TAB PO QAM Clonazepam (Klonopin), 0.5 MG PO BID Diclofenac (Voltaren), 75 MG PO BID Esomeprazole Magnesium (Nexium), 20 MG PO QAM Estradiol (Estradiol), 1 TAB PO QAM Fluticasone Prop/Salmeterol (Advair Diskus 250/50 60 Dose), 1 PUFF INH BID Hydrochlorothiazide (Hctz), 25 MG PO DAILY Loratadine (Claritin), 10 MG PO DAILY Multivitamin (Multivitamin), 1 TAB PO QAM Potassium Chloride (Micro-K Ext Rel), 10 MEQ PO BID Prednisone (Prednisone), 3 TAB PO DAILY Venlafaxine Hcl (Venlafaxine Extended Rel), 37.5 MG PO QAM Scheduled PRN Ipratropium-Albuterol (Combivent Respimat), 1 PUFFS INH QID PRN for SOB/Wheezing Tramadol (Ultram), 50 MG PO Q6 PRN for Pain Allergies Coded Allergies: Codeine (Verified Allergy, Mild, itching, 07/06/16) Lactose Intolerance (GI) (Verified Allergy, Unknown, GI UPSET, 07/06/16) Physical Exam Vital Signs Date Time Temp Pulse Resp B/P (MAP) Pulse Ox O2 Delivery O2 Flow Rate FiO2 01/24/17 17:06 72 18 185/95 98 Room Air 01/24/17 15:12 36.6 67 18 162/78 95 Room Air Physical Exam GENERAL: Awake, alert, well-appearing, in no distress HENT: Normocephalic, atraumatic. Oropharynx unremarkable .Dry mucous membranes. EYES: Normal conjunctiva. Sclera non-icteric. NECK: Supple. No nuchal rigidity. FROM. No JVD. RESPIRATORY: Clear to auscultation. CARDIAC: Regular rate, normal rhythm. Extremities warm and well perfused. Pulses equal. ABDOMEN: Soft, non-distended. No tenderness to palpation. No rebound or guarding. No masses. RECTAL: Deferred. MUSCULOSKELETAL: Chest examination reveals no tenderness. There is no CVA tenderness to palpation. No joint edema. Mild tenderness in right lower lumbar region in the sciatic distribution distally. No spinal step offs or tenderness to palpation midline. LOWER EXTREMITIES: Calves are equal size bilaterally and non-tender. No edema. No discoloration. Positive strength leg raise on right. motor, sensory, and pulses are intact in all 4 extremities. NEURO: Normal sensorium. No sensory or motor deficits noted. SKIN: No rash or jaundice noted. Medical Decision & Procedures Medications Administered Medications (Trade) Dose Ordered Sig/Seema Route Start Time Stop Time Status Last Admin Dose Admin Sodium Chloride 1,000 ml @ 999 mls/hr Q1H1M STAT IV 01/24/17 15:56 01/24/17 16:56 DC 01/24/17 15:56 999 MLS/HR Ketorolac Tromethamine (Toradol Inj) 30 mg NOW STAT IV 01/24/17 15:56 01/24/17 15:59 DC 9/28/17 16:14 30 MG Dexamethasone Sodium Phosphate (Decadron Inj) 10 mg NOW ONCE IV 01/24/17 16:00 01/24/17 16:01 DC 01/24/17 16:14 10 MG ED Course 1548: The patient was evaluated in room A9B. A complete history and physical exam was performed. 1556: Ordered Toradol Inj 30 mg IV, Sodium Chloride 1,000 ml @ 999 mls/hr IV. 1600: Ordered Decadron Inj 10 mg IV. 1740: I reevaluated the patient, and she is feeling better. She states that her pain is now down to a 5/10. 1830: I reevaluated the patient. Discussed results and discharge instructions: She verbalized understanding and agreement. The patient is ready for discharge. Medical Decision I reviewed the patient's past medical history, medications, and the nursing notes as described above. Differentials include: lumbar radiculopathy, worsening spinal stenosis, musculoskeletal strain, epidural abscess, and core compression. The patient is a 66-year-old woman with a past medical history of lumbar spinal stenosis status post spinal surgery is emergency department with worsening right low back pain extending to her right leg consistent with sciatica. History of present illness. Arrival patient appears uncomfortable in no acute distress. Mild tenderness in the right lumbar region in the sciatic distribution with positive straight leg raise. Otherwise denies urinary retention or bowel incontinence. Neurologically intact in all extremities makes or compression unlikely. Chest patient the option for MRI however her symptoms are consistent with a radiculopathy in the setting of her known disease. Patient prefers to defer the MRI at this point and we will continue with supportive management to have her symptoms under control so she is to follow-up with her spine surgeon Dr. Knox. Patient improved after treatment with pain down from a 10 to a 5. Findings and plan for follow-up reviewed with patient. Patient agreeable and d/c'd per discharge instructions. Medication Reconcilliation Current Medication List: was personally reviewed by me Blood Pressure Screening Patient's blood pressure: Elevated blood pressure Blood pressure disposition: Elevated BP felt to be situational Impression Primary Impression: Lumbar radiculopathy, acute Scribe Attestation The scribe's documentation has been prepared under my direction and personally reviewed by me in its entirety. I confirm that the note above accurately reflects all work, treatment, procedures, and medical decision making performed by me. Departure Information Dispostion Home / Self-Care Prescriptions Prednisone (Prednisone) 20 Mg Tab 3 TAB PO DAILY for 4 Days, #12 TAB FOR 4 DAYS Prov: Gal Yost M.D. 01/24/17 Referrals Christian Vela M.D. (PCP) Forms HOME CARE DOCUMENTATION FORM, IMPORTANT VISIT INFORMATION Patient Instructions Lumbar Radiculopathy, My [facility] Additional Instructions Please follow up with your Ortho-spine surgeon, Dr. Knox, in the next 1-3 days for re-evaluation. Otherwise, your exam did not show signs of an emergent condition at this time. Continue your current pain medications. Prednisone for additional anti-inflammatory effect and pain relief. Heating pad at 20 minute intervals throughout the day. Return to the emergency department for worsening symptoms as described in the accompanying instructions.
[2017-01-24] MEDS ORDERED: SODIUM CHLORIDE 0.9% 1000ML 1,000 ML IV STA (15:56)
[2017-01-24] MEDS ORDERED: KETOROLAC TROMETHAMINE 30 MG/ML VIAL IV STA (15:56)
[2017-01-24] MEDS ORDERED: DEXAMETHASONE SOD INJ 10 MG/ML VIAL IV ONE (16:00)
[2017-01-24] MEDS ORDERED: LORA10TA51 PO (16:02)
[2017-01-24] MEDS ORDERED: DICL-201 PO (16:02)
[2017-01-24] MEDS ORDERED: IPRA1AER2 INH (16:02)
[2017-01-24] MEDS ORDERED: ATEN50TA8 PO (16:03)
[2017-01-24] MEDS ORDERED: TRAM-10 PO (16:03)
[2017-01-24] MEDS ORDERED: HYDR25TA4 PO (16:44)
[2017-01-24 17:06] VITALS: BP 185/95; PULSE 72; O2SAT 98
[2017-01-24] MEDS ORDERED: PRED20TA PO (18:34)
[2017-01-24] MEDS ORDERED: CLON0.5T3 PO (19:18)
== END 2017-01-24 18:43 | disposition home or self-care (01) ==
LOC: C.EDB 15:03 → C.EDA 18:43
DX: M54.16 Radiculopathy, lumbar region (principal); I25.10 Atherosclerotic heart disease of native coronary artery without angina pectoris

== ENCOUNTER → 2017-05-07 | Outpatient (CLI) | payer BC ==
[~2017-05-07] MED LIST changes: +ATEN50TA8 PO; -CETI10TA10 PO; +CLON0.5T3 PO; -CYAN10004 PO; +DICL-201 PO; +HYDR25TA4 PO; +IPRA1AER2 INH; +LORA10TA51 PO; +TRAM-10 PO; -VITACAP37 PO
[2017-05-07 18:28] LABS: BASO % 0.6 %; BASO ABS # 0.04 K/uL (0-0.2); EOS % 1.1 %; EOS ABS # 0.07 K/uL (0-0.5); HEMATOCRIT 40.1 % (37-47); HEMOGLOBIN 13.5 g/dL (12.0-16.0); IG# 0.02 K/uL (0.00-0.02); LYMPH % 24.2 %; LYMPH ABS # 1.61 K/uL (1.2-3.4); MEAN CORPUSCULAR HGB CONC 33.7 g/dl (32-36); MEAN PLATELET VOLUME 11.1 fL (7.4-10.4); MONO % 8.4 %; MONO ABS # 0.56 K/uL (0.11-0.59); NEUT % 65.4 %; NEUT ABS # 4.36 K/uL (1.4-6.5); PLATELET COUNT 315 K/uL (130-400); RED CELL DISTRIBUTION WIDTH CV 13.2 % (11.5-14.5); RED CELL DISTRIBUTION WIDTH SD 45.3 fL (36.4-46.3); WHITE BLOOD COUNT 6.66 K/uL (4.8-10.8)
[2017-05-07 18:42] LABS: ALBUMIN 3.6 gm/dl (3.4-5.0); ALT/SGPT 27 U/L (12-78); AST/SGOT 21 U/L (15-37); BLOOD UREA NITROGEN 9 mg/dl (7-18); CALCIUM 9.1 mg/dl (8.5-10.1); CARBON DIOXIDE 31 mmol/L (21-32); CREATININE 0.88 mg/dl (0.60-1.20); GLUCOSE 98 mg/dl (70-99); POTASSIUM 3.7 mmol/L (3.5-5.1); SODIUM 137 mmol/L (136-145)
[2017-05-07 18:44] LABS: ALKALINE PHOSPHATASE 108 U/L (45-117); TOTAL PROTEIN 7.8 gm/dl (6.4-8.2)
[2017-05-07 19:02] LABS: INFLUENZA B ANTIGEN Neg for Influ B (NEG)
== END | disposition home or self-care (01) ==
LOC: C.LABSPEC 17:19
PROVIDERS: ATTEND Internal Medicine
DX: J40 Bronchitis, not specified as acute or chronic (principal); J02.9 Acute pharyngitis, unspecified; K52.9 Noninfective gastroenteritis and colitis, unspecified; B34.9 Viral infection, unspecified

== ENCOUNTER → 2017-05-08 | Outpatient (CLI) | payer BC | END | disposition home or self-care (01) | LOC: C.LABSPEC 17:57 | PROVIDERS: ATTEND Internal Medicine | DX: R19.7 Diarrhea, unspecified (principal) ==

== ENCOUNTER 2017-06-19 05:46 | Inpatient (IN) | payer BC, OTHER ==
[2017-04-17 13:08] VITALS: BMI 46.0
--- NOTE | 2017-04-17 13:48 | PAT Medication Instructions ---
Service Date Apr 17, 2017. Current Home Medication List Atenolol (Tenormin), 50 MG PO QAM Atorvastatin (Lipitor), 20 MG PO HS Celecoxib (CeleBREX), 200 MG PO QAM Cholecalciferol (D 1999), 1 TAB PO QAM Clonazepam (Klonopin), 0.5 MG PO BID Diclofenac (Voltaren), 75 MG PO BID Esomeprazole Magnesium (Nexium), 20 MG PO QAM Estradiol (Estradiol), 1 TAB PO QAM Fluticasone Prop/Salmeterol (Advair Diskus 250/50 60 Dose), 1 PUFF INH BID Hydrochlorothiazide (Hctz), 25 MG PO QAM Ipratropium-Albuterol (Combivent Respimat), 1 PUFFS INH QID PRN for SOB/Wheezing Loratadine (Claritin), 10 MG PO QAM Multivitamin (Multivitamin), 1 TAB PO QAM Potassium Chloride (Micro-K Ext Rel), 10 MEQ PO QAM Tramadol (Ultram), 50 MG PO Q6 PRN for Pain Venlafaxine Hcl (Venlafaxine Extended Rel), 37.5 MG PO QAM Medication Instructions For Your Scheduled Surgery - Check with surgeon for instructions: Diclofenac (Voltaren), 75 MG PO BID Celecoxib (CeleBREX), 200 MG PO QAM Estradiol (Estradiol), 1 TAB PO QAM - Hold the following medications the morning of surgery: Cholecalciferol (D 1999), 1 TAB PO QAM Hydrochlorothiazide (Hctz), 25 MG PO QAM Loratadine (Claritin), 10 MG PO QAM Multivitamin (Multivitamin), 1 TAB PO QAM Potassium Chloride (Micro-K Ext Rel), 10 MEQ PO QAM - Take the following medications the morning of surgery with a sip of water: Venlafaxine Hcl (Venlafaxine Extended Rel), 37.5 MG PO QAM Tramadol (Ultram), 50 MG PO Q6 PRN for Pain (okay to take up to 4 hours prior to surgery if needed) Ipratropium-Albuterol (Combivent Respimat), 1 PUFFS INH QID PRN for SOB/ Wheezing (if needed) Fluticasone Prop/Salmeterol (Advair Diskus 250/50 60 Dose), 1 PUFF INH BID Esomeprazole Magnesium (Nexium), 20 MG PO QAM Clonazepam (Klonopin), 0.5 MG PO BID Atenolol (Tenormin), 50 MG PO QAM - Take the following medications as scheduled the night before surgery: Tramadol (Ultram), 50 MG PO Q6 PRN for Pain (if needed) Ipratropium-Albuterol (Combivent Respimat), 1 PUFFS INH QID PRN for SOB/ Wheezing (if needed) Fluticasone Prop/Salmeterol (Advair Diskus 250/50 60 Dose), 1 PUFF INH BID Clonazepam (Klonopin), 0.5 MG PO BID Atorvastatin (Lipitor), 20 MG PO HS If you have any questions please call us at [phone] or [phone] or [phone]
[2017-04-17 14:21] LABS: BASO % 0.4 %; BASO ABS # 0.03 K/uL (0-0.2); EOS % 1.6 %; EOS ABS # 0.11 K/uL (0-0.5); HEMATOCRIT 37.7 % (37-47); HEMOGLOBIN 12.8 g/dL (12.0-16.0); IG# 0.02 K/uL (0.00-0.02); LYMPH % 29.1 %; LYMPH ABS # 2.01 K/uL (1.2-3.4); MEAN CELL VOLUME 93.3 fL (80-100); MEAN CORPUSCULAR HEMOGLOBIN 31.7 pg (25-34); MEAN PLATELET VOLUME 10.7 fL (7.4-10.4); MONO % 5.6 %; MONO ABS # 0.39 K/uL (0.11-0.59); NEUT ABS # 4.35 K/uL (1.4-6.5); PLATELET COUNT 275 K/uL (130-400); RED CELL DISTRIBUTION WIDTH CV 12.9 % (11.5-14.5); RED CELL DISTRIBUTION WIDTH SD 43.8 fL (36.4-46.3); WHITE BLOOD COUNT 6.91 K/uL (4.8-10.8)
--- NOTE | 2017-04-17 14:26 | DIAGNOSTIC IMAGING REPORT ---
CHEST 2 VIEWS ROUTINE CLINICAL HISTORY: Preoperative chest COMPARISON STUDY: 07/19/2016 FINDINGS: The heart remains normal in size. There is stable hilar fullness. There is no focal pulmonary consolidation. There are no pleural effusions. There are postsurgical changes present within the spine. There is irregularity of the inferior L1 endplate, likely secondary to abnormal motion at the L1-2 level.[ IMPRESSION: 1. Stable hilar fullness. Mild adenopathy cannot be excluded 2. No focal infiltrates. No evidence of failure. 3. Postsurgical changes within the spine. Irregularity at the L1-2 level, likely secondary to degenerative changes with possible abnormal motion at the L1-2 level Electronically signed by: Dov Childers M.D. 04/17/2017 2:24 PM Dictated Date/Time: 04/17/2017 2:21 PM
[2017-04-17 14:36] LABS: CALCIUM 8.9 mg/dl (8.5-10.1); CREATININE 0.96 mg/dl (0.60-1.20); POTASSIUM 3.7 mmol/L (3.5-5.1)
[2017-06-19] VITALS (8 sets, daily range): BP systolic 102–166; BP diastolic 65–80; PULSE 76–90; TEMP 36.3–36.7; O2SAT 92–97; Ht 160 cm; Wt 118.8 kg
[~2017-06-19] VITALS: Ht 160 cm; Wt 118.8 kg
[2017-06-19] MEDS ORDERED: LACTATED RINGER'S 1000ML 1,000 ML IV SCH (06:00)
[2017-06-19] MEDS ORDERED: CEFAZOLIN 2000MG IV PUSH 15 ML IV SCH (06:00)
[2017-06-19] MEDS ORDERED: LIDOCAINE HCL 2% 2 ML VIAL (20MG/ML) ONE (07:01)
[2017-06-19] MEDS ORDERED: FENTANYL CITRATE INJ 50 MCG/1 ML 2 ML VIAL ONE (07:01)
[2017-06-19] MEDS ORDERED: NEOSTIGMINE METHYLSULFATE 1 MG/ML 10ML VIAL ONE (07:01)
[2017-06-19] MEDS ORDERED: ONDANSETRON INJ 2 MG/ML 2 ML VIAL ONE (07:01)
[2017-06-19] MEDS ORDERED: PHENYLEPHRINE 100MCG/ML 5ML SYR ONE (07:01)
[2017-06-19] MEDS ORDERED: LARYING-O-JET KIT (LTA) ONE (07:01)
[2017-06-19] MEDS ORDERED: MIDAZOLAM HCL 1 MG/ML 2ML VIAL ONE (07:01)
[2017-06-19] MEDS ORDERED: DEXAMETHASONE SOD INJ 4 MG/ML VIAL ONE (07:01)
[2017-06-19] MEDS ORDERED: EpHEDrine SULFATE 50MG/5ML SYR ONE (07:01)
[2017-06-19] MEDS ORDERED: GLYCOPYRROLATE INJ 0.2 MG/ML VIAL ONE (07:01)
[2017-06-19] MEDS ORDERED: PROPOFOL IV EMULSION 10 MG/ML 20 ML VIAL IV ONE (07:01)
[2017-06-19] MEDS ORDERED: ROCURONIUM BROMIDE 10 MG/ML 5 ML VIAL IV ONE (07:01)
[2017-06-19] MEDS ORDERED: BUPIVACAINE/EPINEPHRINE 0.5% MPF 1:200,000 30 ML VIAL ONE (07:05)
[2017-06-19] MEDS ORDERED: BACITRACIN 50000 UNIT VIAL ONE (07:05)
[2017-06-19] MEDS ORDERED: LABETALOL HCL IV 5 MG/ML 20ML IV PRN (07:30)
[2017-06-19] MEDS ORDERED: ATROPINE SULFATE 0.1 MG/ML 5ML SYR IV PRN (07:30)
[2017-06-19] MEDS ORDERED: MEPERIDINE HCL 25 MG/ML CARP IV PRN (07:30)
[2017-06-19] MEDS ORDERED: THROMBIN FOR SOLN 20000 UNIT KIT ONE (07:30)
[2017-06-19] MEDS ORDERED: EpHEDrine SULFATE INJ 50 MG/ML AMP IV PRN (07:30)
[2017-06-19] MEDS ORDERED: ONDANSETRON INJ 2 MG/ML 2 ML VIAL IV PRN ×2 (07:30→10:15)
--- NOTE | 2017-06-19 07:41 | History & Physical Bridge Note ---
H&P Re-Evaluation Bridge Note: I have examined the patient, reviewed the History & Physical and in the interval since the performance of the History & Physical I have noted the following changes of clinical significance: No changes noted
--- NOTE | 2017-06-19 07:42 | History and Physical ---
History & Physical Date Jun 19, 2017. Chief Complaint Back and leg pain History of Present Illness The patient is a 66 year old female with complaints of back and leg pain Past Medical/Surgical History Medical Problems: (1) CAD (coronary artery disease) (2) Lumbar stenosis with neurogenic claudication Additional History Hepatic Disease: No Endocrine Disorder: No Kidney Disease: No Hypertension: Yes Heart Disease: No Bleeding Tendencies: No Infectious Diseases: No Allergies Coded Allergies: Codeine (Verified Allergy, Mild, itching, 06/19/17) Lactose Intolerance (GI) (Verified Allergy, Unknown, GI UPSET, 06/19/17) Home Medications Scheduled Atenolol (Tenormin), 50 MG PO QAM Atorvastatin (Lipitor), 20 MG PO HS Celecoxib (CeleBREX), 200 MG PO QAM Cholecalciferol (D 2000), 1 TAB PO QAM Clonazepam (Klonopin), 0.5 MG PO BID Diclofenac (Voltaren), 75 MG PO BID Esomeprazole Magnesium (Nexium), 20 MG PO QAM Estradiol (Estradiol), 1 TAB PO QAM Fluticasone Prop/Salmeterol (Advair Diskus 250/50 60 Dose), 1 PUFF INH BID Hydrochlorothiazide (Hctz), 25 MG PO QAM Loratadine (Claritin), 10 MG PO QAM Multivitamin (Multivitamin), 1 TAB PO QAM Potassium Chloride (Micro-K Ext Rel), 10 MEQ PO QAM Venlafaxine Hcl (Venlafaxine Extended Rel), 37.5 MG PO QAM Scheduled PRN Ipratropium-Albuterol (Combivent Respimat), 1 PUFFS INH QID PRN for SOB/Wheezing Tramadol (Ultram), 50 MG PO Q6 PRN for Pain Physical Examination Skin: warm/dry, no rash Eyes: normal inspection, EOMI, sclerae normal ENT: normal ENT inspection, pharynx normal Head: normocephalic, atraumatic Neck: supple, no adenopathy, trachea midline Respiratory/Chest: lungs clear, normal breath sounds, no respiratory distress Cardiovascular: regular rate, rhythm, no edema, no murmur Abdomen / GI: normal bowel sounds, non tender Back: normal inspection Extremities: normal inspection, normal range of motion Neurologic/Psych: no motor/sensory deficits, alert, normal reflexes, oriented x 3 Diagnosis Lumbar spinal stenosis Plan of Treatment Hardware removal L2 with T 11 2 L2 decompression and fusion
[2017-06-19] MEDS ORDERED: HYDROmorphone INJ 2 MG/ML SYR/VIAL ONE (08:18)
[2017-06-19] MEDS ORDERED: SODIUM CHLORIDE 0.9% 1000ML 1,000 ML IV SCH (10:07)
--- NOTE | 2017-06-19 10:07 | [facility] Operative Report ---
Operative Report Operative Date Jun 19, 2017. Pre-Operative Diagnosis Lumbar Spinal Stenosis Post-Operative Diagnosis Lumbar Spinal Stenosis Procedure(s) Performed #1 removal instrumentation L2. #2 expiration of fusion L2 3. #3 lumbar decompression medial facetectomies foraminotomies T12-L1 L1 2. #4 posterior spinal fusion T11 to L2. #5 placement of posterior segmental instrumentation T11 to L2. #6 interbody fusion L1-2. #7 placement peek cage 8 x 22 mm at L1-2. #8 placement of locally harvested morselized autograft in the posterior lateral gutters. #9 placement of infuse collagen sponge, master graft in the posterior lateral gutters and osteo-lamp in the interbody space. Surgeon Dr. Knox Proposal Engineer Surgeon(s) Lia Almodovar PA-C Estimated Blood Loss 200 cc Findings Severe spinal stenosis Specimens A: Explanted spinal hardware Anesthesia Type General Description of Procedure Patient was met with preoperatively case discussed all questions addressed. After informed consent obtained patient was taken back to the operative suite underwent intubation and placed in a prone position on the Elio table on top of the Donnell frame. All bony prominences were well-padded the eyes inspected to ensure no external pressure placed upon them. This point the thoracal lumbar spine was prepped and draped in the normal sterile fashion. Sharp dissection with the assistance of Bovie cautery was performed onto exposing the lamina and transverse processes of T 11 T12-L1 and L2. Then proceeded remove the hardware L2 explored the fusion mass L2 3 noting it to be intact. Then performed a complete laminectomy of L1 and T12 addressing severe lateral recess foraminal stenosis. Pedicle screws were then placed and T 11 T12-L1 bilaterally with the assistance of fluoroscopy. Through a transforaminal approach on the right a complete discectomy of L1-2 was performed endplates graded to subcortical bleeding bone and a 8 x 22 mm peek cage filled with osteal bone graft tapped in position. Proper sized rods were then connected via barrel connectors to the previous rods and locked in position bilaterally. Transverse processes and lamina of T 1011 T12-L1 into were then burred to subcortical bleeding bone. Infuse collagen sponge mass graft locally harvested morcellized autograft was placed in the posterior lateral gutters. 15 round EROS drain inserted. Incision was then closed with 1 Vicryl in the fascia 2-0 Vicryl subcutaneous sleep 4-0 Monocryl for final skin closure Steri-Strips dressings placed. Patient was continued PACU stable condition. Please note Lia Montesinos was present at the entire procedure involved in patient positioning complex portions of the surgery and final skin closure. I attest to the content of the Intraoperative Record and any orders documented therein. Any exceptions are noted below.
--- NOTE | 2017-06-19 10:10 | DIAGNOSTIC IMAGING REPORT ---
LUMBAR SPINE 2 OR 3 VIEW CLINICAL HISTORY: L2 REMOVE HARDWARE/T11-L2 DECOMPRESSION/FUSION TECHNIQUE: Image intensifier COMPARISON STUDY: None FINDINGS: Image intensifier was utilized for L2 hardware removal. T11-L2 laminectomy and fusion. IMPRESSION: Image intensifier usage for hardware removal/laminectomy. The above report was generated using voice recognition software. It may contain grammatical, syntax or spelling errors. Electronically signed by: David Ramsey M.D. 06/19/2017 10:09 AM Dictated Date/Time: 06/19/2017 10:08 AM
[2017-06-19] MEDS ORDERED: DO NOT ADMINISTER PNEUMOCOCCAL VACCINE PRN (10:15)
[2017-06-19] MEDS ORDERED: DO NOT ADMINISTER FLU VACCINE PRN (10:15)
[2017-06-19] MEDS ORDERED: METOCLOPRAMIDE HCL INJ 5 MG/ML 2 ML VIAL IV PRN (10:15)
[2017-06-19] MEDS ORDERED: SOD PHOSPHATE/SOD BIPHOSPHATE ENEMA 132 ML BTL PR PRN (10:15)
[2017-06-19] MEDS ORDERED: IPRATROPIUM BROMIDE/ALBUTEROL respimat INH INH PRN (10:15)
[2017-06-19] MEDS ORDERED: LORAZEPAM INJ 0.5 MG in SYRINGE 0 ML IV PRN (10:15)
[2017-06-19] MEDS ORDERED: MAGNESIUM HYDROXIDE SUSP 30 ML UDC PO PRN (10:15)
[2017-06-19] MEDS ORDERED: FAMOTIDINE 20 MG TAB PO PRN (10:15)
[2017-06-19] MEDS ORDERED: ACETAMINOPHEN IV 100 ML IV PRN (10:15)
[2017-06-19] MEDS ORDERED: BISACODYL 10 MG SUPP PR PRN (10:15)
[2017-06-19] MEDS ORDERED: hydrOXYzine HCL 25 MG TAB PO PRN (10:15)
[2017-06-19] MEDS ORDERED: PROMETHAZINE HCL INJ 12.5 MG in SODIUM CHLORIDE 0.9% 50ML 50 ML IV PRN (10:15)
[2017-06-19] MEDS ORDERED: NALOXONE HCL 0.4 MG/1 ML VIAL/CARP IV PRN ×2 (10:15)
[2017-06-19] MEDS ORDERED: ALUMINUM/MAGNESIUM SUSP 30 ML UDC PO PRN (10:15)
[2017-06-19] MEDS ORDERED: LORAZEPAM 0.5 MG TAB PO PRN (10:15)
[2017-06-19] MEDS ORDERED: FLOSEAL HEMOSTATIC MATRIX 10ML TOP ONE (10:28)
[2017-06-19] MEDS: HYDROmorphone HCL 0.5MG/ML 50 ML CASSETTE IV PRN ×3 (10:36→23:03)
[2017-06-19] MEDS: FENTANYL CITRATE INJ 50 MCG/1 ML 2 ML VIAL IV PRN ×2 (10:51→10:56)
--- NOTE | 2017-06-19 11:09 | Anesthesiology Progress Note ---
Anesthesia Post Op Note Date & Time Jun 19, 2017 at 11:09 Vital Signs Pain Intensity: 4 Vital Signs Past 12 Hours Date Time Temp Pulse Resp B/P (MAP) Pulse Ox O2 Delivery O2 Flow Rate FiO2 06/19/17 11:05 36.1 78 18 122/63 96 Nasal Cannula 4 06/19/17 10:55 76 18 127/63 96 Nasal Cannula 4 06/19/17 10:45 81 18 152/67 98 Oxymask 10 06/19/17 10:35 79 18 189/88 98 Oxymask 10 06/19/17 10:27 36.2 74 18 185/83 98 Oxymask 10 06/19/17 06:29 36.5 76 22 166/80 94 Room Air Notes Mental Status: alert / awake / arousable, participated in evaluation Pt Amnestic to Procedure: Yes Nausea / Vomiting: adequately controlled Pain: adequately controlled Airway Patency, RR, SpO2: stable & adequate BP & HR: stable & adequate Hydration State: stable & adequate Anesthetic Complications: no major complications apparent
[2017-06-19] MEDS: CEFAZOLIN IV 2,000 MG in SYRINGE 0 ML IV SCH (15:37)
[2017-06-19] MEDS: SODIUM CHLORIDE 0.9% 1000ML 1,000 ML IV SCH ×2 (15:37→21:44)
[2017-06-19] MEDS: FLUTICASONE/SALMETEROL 250/50 (ADVAIR) 14 PUFF/1 INHALER INH SCH (20:35)
[2017-06-19] MEDS: CLONAZEPAM 0.5 MG TAB PO SCH (20:35)
[2017-06-19] MEDS: ATORVASTATIN 20 MG TAB PO SCH (20:36)
[2017-06-19] MEDS: DOCUSATE SODIUM/SENNA 50/8.6MG TAB PO SCH (20:36)
[2017-06-20] VITALS (8 sets, daily range): BP systolic 112–181; BP diastolic 58–82; PULSE 72–100; TEMP 36.4–37.1; O2SAT 85–98
[2017-06-20] MEDS: CEFAZOLIN IV 2,000 MG in SYRINGE 0 ML IV SCH (00:24)
[2017-06-20] MEDS: SODIUM CHLORIDE 0.9% 1000ML 1,000 ML IV SCH (04:07)
[2017-06-20] MEDS ORDERED: NURSING DECISION MEDICATION ORDER SCH (05:45)
[2017-06-20] MEDS ORDERED: HYDROmorphone INJ 0.5 MG/0.5 ML SYR IV PRN (06:00)
[2017-06-20] MEDS ORDERED: DC PCA SCH (06:00)
[2017-06-20 07:27] LABS: BASO % 0.1 %; BASO ABS # 0.01 K/uL (0-0.2); EOS % 0.2 %; EOS ABS # 0.02 K/uL (0-0.5); HEMATOCRIT 34.7 % (37-47); HEMOGLOBIN 11.4 g/dL (12.0-16.0); IG# 0.03 K/uL (0.00-0.02); LYMPH % 15.1 %; LYMPH ABS # 1.65 K/uL (1.2-3.4); MEAN CELL VOLUME 94.3 fL (80-100); MEAN CORPUSCULAR HGB CONC 32.9 g/dl (32-36); MEAN PLATELET VOLUME 10.5 fL (7.4-10.4); MONO % 8.2 %; NEUT % 76.1 %; PLATELET COUNT 245 K/uL (130-400); RED CELL DISTRIBUTION WIDTH CV 13.1 % (11.5-14.5); RED CELL DISTRIBUTION WIDTH SD 45.3 fL (36.4-46.3); WHITE BLOOD COUNT 10.91 K/uL (4.8-10.8)
[2017-06-20 07:58] LABS: CREATININE 0.78 mg/dl (0.60-1.20); POTASSIUM 3.4 mmol/L (3.5-5.1)
[2017-06-20] MEDS: FLUTICASONE/SALMETEROL 250/50 (ADVAIR) 14 PUFF/1 INHALER INH SCH ×2 (08:50→20:56)
[2017-06-20] MEDS: LORATADINE 10 MG TAB PO SCH (08:51)
[2017-06-20] MEDS: POTASSIUM CHLORIDE 10 MEQ TABCR PO SCH (08:51)
[2017-06-20] MEDS: VENLAFAXINE HCL XR 37.5 MG CAPXR PO SCH (08:52)
[2017-06-20] MEDS: PANTOprazole SOD 40 MG TAB PO SCH (08:52)
[2017-06-20] MEDS: HYDROCHLOROTHIAZIDE 25 MG TAB PO SCH (08:52)
[2017-06-20] MEDS: CLONAZEPAM 0.5 MG TAB PO SCH ×2 (08:54→20:54)
[2017-06-20] MEDS: OXYCODONE HCL IR 5 MG TAB (IMMEDIATE RELEASE) PO PRN ×2 (10:27→15:08)
--- NOTE | 2017-06-20 10:33 | Anesthesiology Progress Note ---
Anesthesia Post Op Note Date & Time Jun 20, 2017 at 10:33 Vital Signs Vital Signs Past 12 Hours Date Time Temp Pulse Resp B/P (MAP) Pulse Ox O2 Delivery O2 Flow Rate FiO2 06/20/17 08:42 36.6 88 16 149/73 (98) 93 Room Air 06/20/17 07:57 98 Nasal Cannula 1.0 06/20/17 05:35 Nasal Cannula 1.0 06/20/17 05:34 156/82 (106) 98 Nasal Cannula 1.0 06/20/17 04:12 36.5 91 16 162/76 (104) 85 Room Air 06/20/17 04:12 97 Nasal Cannula 2.0 06/20/17 00:21 Room Air 06/19/17 23:25 36.7 90 18 113/66 (82) 92 Room Air Notes Mental Status: alert / awake / arousable, participated in evaluation Pt Amnestic to Procedure: Yes Nausea / Vomiting: adequately controlled Pain: adequately controlled Airway Patency, RR, SpO2: stable & adequate BP & HR: stable & adequate Hydration State: stable & adequate Anesthetic Complications: no major complications apparent
--- NOTE | 2017-06-20 12:47 | Progress Note ---
Progress Note Date of Service Jun 20, 2017. Progress Note Patient underwent lumbar decompression fusion tolerated as well as taken the orthopedic floor possibly. Patient is markedly improved leg pain. Back pain is controlled. On exam she's good strength testing appears comfortable. Assessment status post lumbar decompression fusion. Plan this time will continue physical therapy anticipate discharge home this weekend.
[2017-06-20] MEDS ORDERED: RXC5 PO (14:26)
--- NOTE | 2017-06-20 14:27 | Discharge Instructions ---
Discharge Instructions Date of Service Jun 20, 2017. Admission Reason for Admission: Spinal Stenosis Discharge Discharge Diagnosis / Problem: lumbar stenosis Discharge Goals Goal(s): Improve function Activity Recommendations Activity Limitations: per Instructions/Follow-up section . Instructions / Follow-Up Instructions / Follow-Up ACTIVITY RECOMMENDATIONS: SELF CARE INSTRUCTIONS AFTER THORACIC/LUMBAR FUSIONS 1. You may walk to your tolerance. It is good exercise for your legs and back. Expect some back and intermittent leg aches and pains. 2. You may perform "counter-top" level activities (make a sandwich, jamel with a project, etc.). 3. No bending or lifting of more than 10 pounds or back twisting of any nature (roll like a log when turning in bed). 4. You may ride in a car for 20-30 minutes at a time. No driving until after your first visit with your doctor. 5. Frequent changes of position and restricting sitting to 30 minutes at a time will help limit the amount of back spasms and stiffness you may experience. 6. You may discontinue the use of ambulatory aids (cane, crutches, etc.) once your strength and confidence allow. 7. 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 Do not take a tub bath, sit in a hot tub or go into a swimming pool until after your first recheck in the office. SPECIAL CARE INSTRUCTIONS: VERY IMPORTANT TO READ AND REVIEW A. Your surgical incision has been closed with a cosmetic suture under the skin that will dissolve in about 6 weeks. In 14 days, you can use a pair of clean scissors and cut the suture that is left outside of the skin at the ends of your incision. 1. The small skin tapes can be removed 7 days after surgery if they have not fallen off by that point. 2. You may keep the wound open to air as much as possible to promote healing after post-op day number 5 unless told otherwise by your doctor. 3. If you think the wound looks like it is becoming infected (redness or worsening drainage) and/or you are experiencing fever, chill or worsening back pain and muscle spasms, contact the office so that we may evaluate you as soon as possible. B. Complications are uncommon, but please contact us if you have any signs or symptoms of: 1. wound infection (fever higher than 102.5 degrees F, redness, separation of wound, drainage, or increasing pain from the incision) 2. blood clots in legs (pain, swelling, redness and warmth in legs) 3. urinary tract infection (fever higher than 102.5 degrees F, burning upon urination or increased frequency of urination) 4. nerve problems (inability to walk on your toes or heels, numbness, loss of bowel or bladder control) 5. any other symptoms that concern you C. Please call the office at if you have any concerns or questions about your operation or recovery. D. No smoking! Smoking drastically decreases the chance of a solid fusion. E. Do not take any anti-inflammatory medications (Indocin, Advil, Motrin, Aspirin, Naprosyn, etc.) as these may inhibit the chance of a solid fusion. Tylenol is okay to take for pain. MANAGING PAIN AFTER SPINAL SURGERY 1. Narcotic medication is intended for short-term use and will be provided for surgical pain. Surgical pain usually lasts for a period of 4-6 weeks. Narcotic medication includes Percocet, Vicodin, Darvocet, Tylenol #3 or Lortab. 2. Longer-term pain is more appropriately treated with non-narcotic medication such as Tylenol ES. 3. Muscle spasm is not appropriately treated with narcotics. Muscle relaxers such as Soma, Flexeril or Skelaxin can be used along with Tylenol ES. 4. Remember that we all live with some "aches and pains". This is not unusual or uncommon after an injury or as we get older. a. Back pain is expected and may include muscle spasms for 4 to 6 weeks after surgery. The pain should gradually improve. If the pain worsens for no apparent reason, please contact the office. b. Intermittent leg pain may also be experienced and should not be concerned about unless it worsens for no apparent reason. If so, please contact the office. 5. We will provide appropriate medication within the normal guidelines of their prescribed use. We will also be very cautious and aware of potential abuse and extended duration of patients' medication needs. a. Pain medications are for your comfort and to assist with sleep and rest so that the tissue can heal. They are not provided in order to return to normal activity and should not be used through the day. To do so or worsening pain at night can result from ongoing tissue damage and development of tolerance to the prescribed medicine. 6. Please allow 2-3 days to process refills. Prescriptions will not be mailed but must be picked up at the office. FOLLOW UP VISIT: Keep your scheduled follow-up appointment. Any questions, please call the office at . Current Hospital Diet Patient's current hospital diet: Regular Diet Discharge Diet Recommended Diet: Regular Diet Procedures Procedures Performed: #1 removal instrumentation L2. #2 expiration of fusion L2 3. #3 lumbar decompression medial facetectomies foraminotomies T12-L1 L1 2. #4 posterior spinal fusion T11 to L2. #5 placement of posterior segmental instrumentation T11 to L2. #6 interbody fusion L1-2. #7 placement peek cage 8 x 22 mm at L1-2. #8 placement of locally harvested morselized autograft in the posterior lateral gutters. #9 placement of infuse collagen sponge, master graft in the posterior lateral gutters and osteo-lamp in the interbody space. Pending Studies Studies pending at discharge: no Medical Emergencies . Who to Call and When: Medical Emergencies: If at any time you feel your situation is an emergency, please call 911 immediately. . Non-Emergent Contact Non-Emergency issues call your: Primary Care Provider . "Provider Documentation" section prepared by Tyrell Knox. . VTE Core Measure Inpt VTE Proph given/why not?: Cody Samuel, SCD's
[2017-06-20] MEDS ORDERED: KETOROLAC TROMETHAMINE 15 MG/ML VIAL IV. PRN (14:30)
[2017-06-20] MEDS: ATORVASTATIN 20 MG TAB PO SCH (20:55)
[2017-06-20] MEDS: DOCUSATE SODIUM/SENNA 50/8.6MG TAB PO SCH (20:55)
[2017-06-20] MEDS: TRAMADOL HCL 50 MG TAB PO PRN (23:53)
[2017-06-21] MEDS: POLYETHYLENE (MIRALAX) 17 GM PACK PO SCH ×4 (05:29→23:32)
[2017-06-21] MEDS: TRAMADOL HCL 50 MG TAB PO PRN ×2 (05:55→16:41)
[2017-06-21 08:29] VITALS: BP 132/86; PULSE 88; TEMP 36.7; O2SAT 90
[2017-06-21] MEDS: LORATADINE 10 MG TAB PO SCH (08:56)
[2017-06-21] MEDS: ACETAMINOPHEN 500 MG TAB PO PRN ×2 (08:56→19:33)
[2017-06-21] MEDS: FLUTICASONE/SALMETEROL 250/50 (ADVAIR) 14 PUFF/1 INHALER INH SCH ×2 (08:56→20:24)
[2017-06-21] MEDS: PANTOprazole SOD 40 MG TAB PO SCH (08:56)
[2017-06-21] MEDS: CLONAZEPAM 0.5 MG TAB PO SCH ×2 (08:56→20:25)
[2017-06-21] MEDS: VENLAFAXINE HCL XR 37.5 MG CAPXR PO SCH (08:57)
[2017-06-21] MEDS: HYDROCHLOROTHIAZIDE 25 MG TAB PO SCH (08:57)
[2017-06-21] MEDS: POTASSIUM CHLORIDE 10 MEQ TABCR PO SCH (08:58)
[2017-06-21 10:10] VITALS: BP 133/73; PULSE 100; O2SAT 95
[2017-06-21 10:26] VITALS: O2SAT 90
--- NOTE | 2017-06-21 14:42 | Progress Note ---
Progress Note Date of Service Jun 21, 2017. Progress Note Back pain is controlled. Leg symptoms improved. Vital signs stable. On exam she's good strength testing. Assessment status post lumbar decompression fusion. Plan at this time will continue physical therapy consider possible home Saturday or Saturday.
[2017-06-21 15:51] VITALS: BP 117/64; PULSE 77; TEMP 36.7; O2SAT 92
[2017-06-21] MEDS: DOCUSATE SODIUM/SENNA 50/8.6MG TAB PO SCH (20:24)
[2017-06-21] MEDS: ATORVASTATIN 20 MG TAB PO SCH (20:24)
[2017-06-21 22:56] VITALS: BP 122/66; PULSE 83; TEMP 36.7; O2SAT 90
[2017-06-22] MEDS: POLYETHYLENE (MIRALAX) 17 GM PACK PO SCH ×2 (05:49→12:00)
[2017-06-22] MEDS: ACETAMINOPHEN 500 MG TAB PO PRN (06:06)
[2017-06-22 07:58] VITALS: BP 145/74; PULSE 86; TEMP 36.6; O2SAT 96
[2017-06-22] MEDS: VENLAFAXINE HCL XR 37.5 MG CAPXR PO SCH (09:22)
[2017-06-22] MEDS: PANTOprazole SOD 40 MG TAB PO SCH (09:22)
[2017-06-22] MEDS: HYDROCHLOROTHIAZIDE 25 MG TAB PO SCH (09:22)
[2017-06-22] MEDS: LORATADINE 10 MG TAB PO SCH (09:22)
[2017-06-22] MEDS: POTASSIUM CHLORIDE 10 MEQ TABCR PO SCH (09:23)
[2017-06-22] MEDS: FLUTICASONE/SALMETEROL 250/50 (ADVAIR) 14 PUFF/1 INHALER INH SCH (09:23)
[2017-06-22] MEDS: CLONAZEPAM 0.5 MG TAB PO SCH (09:26)
[2017-06-22] MEDS: OXYCODONE HCL IR 5 MG TAB (IMMEDIATE RELEASE) PO PRN ×2 (09:30→13:34)
--- NOTE | 2017-06-22 10:32 | Discharge Summary ---
Orthopedic Discharge Summary Admission Date/Reason Jun 19, 2017 at 07:00 Spinal Stenosis. Discharge Date/Disposition Jun 22, 2017 Home Diagnosis Principal Diagnosis: Lumbar spinal stenosis Admission Physical Exam As per Admitting History & Physical. Hospital Course Patient underwent lumbar decompression fusion tolerated this well was taken to the orthopedic floor postoperatively. Postoperative day #1 she was progressing appropriately Presta postoperative day #2 and 3 EROS drain decreasing nicely. Substernally discharge home. Discharge orders and instructions found in the chart for further review. Discharge Instructions Please refer to the electronic Patient Visit Report (Discharge Instructions) for additional information.
[2017-06-22 14:13] VITALS: BP 145/74; PULSE 86; TEMP 36.6; O2SAT 96
== END 2017-06-22 15:37 | disposition home health service (06) | DRG 455 ==
LOC: C.ACU 05:46 → C.MSN 07:00 → ENRESERV 10:59
PROVIDERS: ADMIT Orthopaedic Surgery Orthopaedic Surgery of the Spine; ATTEND Orthopaedic Surgery Orthopaedic Surgery of the Spine
PROC: 0ST20ZZ Resection of Lumbar Vertebral Disc, Open Approach (ICD-10-PCS; principal; 2017-06-19 07:45)
PROC: 0RGA071 Fusion of Thoracolumbar Vertebral Joint with Autologous Tissue Substitute, Posterior Approach, Posterior Column, Open Approach (ICD-10-PCS; principal; 2017-06-19 07:45)
PROC: 0RG6071 Fusion of Thoracic Vertebral Joint with Autologous Tissue Substitute, Posterior Approach, Posterior Column, Open Approach (ICD-10-PCS; principal; 2017-06-19 07:45)
PROC: 0SG00AJ Fusion of Lumbar Vertebral Joint with Interbody Fusion Device, Posterior Approach, Anterior Column, Open Approach (ICD-10-PCS; principal; 2017-06-19 07:45)
PROC: 0SG0071 Fusion of Lumbar Vertebral Joint with Autologous Tissue Substitute, Posterior Approach, Posterior Column, Open Approach (ICD-10-PCS; principal; 2017-06-19 07:45)
PROC: 0SP004Z Removal of Internal Fixation Device from Lumbar Vertebral Joint, Open Approach (ICD-10-PCS; principal; 2017-06-19 07:45)
DX: M48.061 Spinal stenosis, lumbar region without neurogenic claudication (principal); I25.10 Atherosclerotic heart disease of native coronary artery without angina pectoris; Z79.899 Other long term (current) drug therapy; Z88.5 Allergy status to narcotic agent; Z91.011 Allergy to milk products